=== PATIENT | female | born 1980 | race Two or more races ===

== ENCOUNTER 2016-08-08 19:40 | Emergency (ER) | payer OTHER ==
--- NOTE | 2016-08-08 19:46 | PDOC ---
History of Present Illness - General History Source: Patient Exam Limitations: No Limitations - History of Present Illness Initial Comments: 08/08/16 19:59 The patient is a 36 year old female, with no significant past medical history, but recent travel to [place], [place], and [place], who presents today complaining of nausea. The patient states that she became nauseas on as her flight landed in [place]. On Tuesday, the patient took a laxative that cleared out her system, but the nausea has persisted. The nausea is exacerbated by eating. Denies fever, chills, vomiting. Denies headache, lightheadedness. Denies chest pain, SOB. Allergies: none reported Social Hx: Tobacco use (5 cigarettes per day). PCP- Dr. Jaiden FERNANDEZ General: No fevers or chills, no weakness, no weight loss HEENT: No change in vision. No sore throat,. No ear pain CardioVascular: No chest pain or shortness of breath Respiratory:No cough, or wheezing. Gastrointestinal: +nausea. No vomiting, diarrhea or constipation, No rectal bleeding Genitourinary: No dysuria, hematuria, or frequency Musculoskeletal: No joint or muscle pain or swelling Neurologic: No headache, vertigo, dizziness or loss of consciousness Psychiatric: nor depression Skin: No rashes or easy bruising Endocrine: no increased thirst or abnormal weight change Allergic: no skin or latex allergy All other systems reviewed and normal Exam: General: Well-nourished well-developed individual, no acute distress HEENT: Throat: Normal, tonsils normal, no erythema or exudate Neck: Supple, no meningeal signs, no lymphadenopathy Eyes::Pupils equal reactive and round, extraocular motion intact Chest: Nontender to palpation Cardiac: S1-S2 normal, regular rate and rhythm, no murmurs rubs or gallops Respiratory: Lungs clear to auscultation bilateral Abdomen: Soft, nondistended, normal bowel sounds, nontender to palpation diffusely Extremities: Warm, dry, no cyanosis, clubbing, or edema Skin: No rashes Neuro: Alert and oriented x3, nonfocal exam, grossly intact, normal gait Psych: Normal mood and affect <Jessica Wagner - Last Filed: 08/08/16 19:59> - General History Source: Patient Exam Limitations: No Limitations - History of Present Illness Initial Comments: 08/08/16 20:59 A portion of this note was documented by scribe services under my direction. I have reviewed the details of the note, within reason, and agree with the documentation. The case summary and management plan written by me. Assessment and plan: This is a 36-year-old female who comes in complaining of nausea. Patient recently traveled for 2 weeks to [place]. Patient just returned a few days ago and has had persistent nausea since her return. Patient had a workup including CBC and chemistries. Patient's liver enzymes are mildly elevated. Patient does not have any tenderness over her liver or gallbladder. Patient's exam was normal and the rest of her blood work was also normal. Hepatitis A and B panel were sent. Patient given copies of her blood work and will follow-up with her primary care doctor tomorrow. Prescription for Zofran was sent patient's pharmacy. <Maria D Zelaya I - Last Filed: 08/08/16 21:02> - General Chief Complaint: Nausea Stated Complaint: NAUSEA Time Seen by Provider: 08/08/16 19:46 Past History <Jessica Wagner - Last Filed: 08/08/16 19:59> <Maria D Zelaya I - Last Filed: 08/08/16 21:02> - Past Medical History Allergies/Adverse Reactions: Allergies Allergy/AdvReac Type Severity Reaction Status Date / Time No Known Allergies Allergy Verified 08/08/16 19:42 Home Medications: Ambulatory Orders Ondansetron [Zofran Odt -] 4 mg SL TID #14 od.tablet 08/08/16 *Physical Exam - Vital Signs Last Vital Signs Temp Pulse Resp BP Pulse Ox 98.0 F 93 H 16 130/96 99 08/08/16 19:41 08/08/16 19:41 08/08/16 19:41 08/08/16 19:41 08/08/16 19:41 <Jessica Wanger - Last Filed: 08/08/16 19:59> ED Treatment Course - Medications Given in the ED: ED Medications Discontinued Medications Generic Name Dose Route Start Last Admin Trade Name Freq PRN Reason Stop Dose Admin Ondansetron HCl 4 mg 08/08/16 19:47 08/08/16 19:57 Zofran Odt - SL 08/08/16 19:48 4 mg ONCE ONE Administration <Jessica Wagner - Last Filed: 08/08/16 19:59> - LABORATORY CBC & Chemistry Diagram: 08/08/16 20:00 08/08/16 20:00 <Maria D Zelaya I - Last Filed: 08/08/16 21:02> *DC/Admit/Observation/Transfer - Attestations Scribe Attestion: 08/08/16 20:00 Documentation prepared by ALDO Abbasi, acting as chief medical officer for Maria D Zelaya MD. <Jessica Wagner - Last Filed: 08/08/16 19:59> - Discharge Dispostion Admit: No <Maria D Zelaya I - Last Filed: 08/08/16 21:02> Diagnosis at time of Disposition: Nausea - Discharge Dispostion Disposition: HOME Condition at time of disposition: Good - Referrals Referrals: Jaiden Huffman MD [Primary Care Provider] - - Patient Instructions Additional Instructions: For nausea U can take one tablet of the Zofran 3 times a day as needed. To hepatitis tests were sent to the lab but will not be available for several days. It is important that you call your doctor in the morning and follow-up with your doctor bring copies of your blood work with you to see her doctor. Return to the emergency department immediately with ANY new, persistent or worsening symptoms. Continue any medications as previously prescribed by your physician. You should follow up with your primary doctor as soon as possible regarding today's emergency department visit. . Please make sure your doctor reviews the results of your emergency evaluation. Thank you for coming to the Emergency Department today for your care. It was a pleasure to see you today. Please note that your evaluation is INCOMPLETE until you follow-up with your doctor.
[2016-08-08] MEDS ORDERED: ONDANSETRON *ODT* 4 MG TABLET SL ONE (19:47)
[2016-08-08] MEDS ORDERED: ONDANSETRON *ODT* 4 MG TABLET ONE (19:56)
[2016-08-08 20:01] LABS: PH,URINE 8.5 (4.5-8); URINE APPEARANCE Clear; URINE BILIRUBIN Negative (NEGATIVE); URINE BLOOD Negative (NEGATIVE); URINE COLOR YELLOW; URINE GLUCOSE (UA) Negative (NEGATIVE); URINE KETONE Negative (NEGATIVE); URINE LEUK ESTERASE 1+ (NEGATIVE); URINE NITRITE Negative (NEGATIVE); URINE PROTEIN 1+ (NEGATIVE); URINE UROBILINOGEN 1.0 E.U/dl (0.2-1.0)
[2016-08-08 20:19] VITALS: BP 130/96; PULSE 93; TEMP 98; BMI 29.2
[2016-08-08 20:28] LABS: BASOPHIL 0.8 % (0-2.0); EOSINOPHIL 2.8 % (0-4.5); MCHC 34.1 g/dl (32.0-36.0); MEAN CELL VOLUME 90.8 fl (80-96); MEAN PLT VOLUME 8.3 fl (7.5-11.1); NEUTROPHILS 60.4 % (42.8-82.8); PLATELET COUNT 198 K/MM3 (134-434); RDW 12.4 % (11.6-15.6); WHITE BLOOD COUNT 5.3 K/mm3 (4.0-10.0)
[2016-08-08 20:37] LABS: ALBUMIN 3.6 g/dl (3.5-5.0); ALK PHOS 51 U/L (32-92); ANION GAP 8 (8-16); CALCIUM 8.5 mg/dl (8.4-10.2); CO2 24 mmol/L (22-28); CREATININE 0.8 mg/dl (0.6-1.3); GLUCOSE,RANDOM 97 mg/dl (74-106); SGOT/AST 43 U/L (10-42); SGPT/ALT 54 U/L (10-40); TOT PROT 6.2 g/dl (6.4-8.3)
[2016-08-08 21:22] LABS: URINE RBC 0-3 /hpf (0-3)
[2016-08-08 21:29] LABS: BILIRUBIN,TOTAL < 0.2 mg/dl (0.2-1.0)
[2016-08-10 10:20] LABS: HEP B SURFACE AB Non Reactive (.)
== END 2016-08-08 21:05 | disposition home or self-care (01) ==
LOC: FER 19:40
DX: R11.0 Nausea (principal)
CPT/HCPCS: 36415; 80053; 81003; 81015; 83690; 84703; 85025; 86704; 86706; 86708; 87340; 99282-25